=== PATIENT | male | born 1940 | race Caucasian/White ===

== ENCOUNTER 2024-07-01 12:51 | Emergency (ER) | payer MEDICARE, SELFPAY ==
[2024-07-01 13:15] VITALS: BP 150/72; PULSE 85; RESP 20; TEMP 36.8; O2SAT 95; BMI 24.4
--- NOTE | 2024-07-01 13:27 | XR_ITS ---
Examination: Knee, left , 3 views Technique: Knee AP, lateral, oblique 3 views Date and time of exam: June 2024 1337 hours INDICATIONS: Patient fell today with injury to the knee, knee pain. FINDINGS: Severe osteopenia Advanced osteoarthritis medial patellofemoral joints Small knee effusion No acute fracture Orthopedic screw patella IMPRESSION: No acute fracture Given the severe osteopenia, suggest short-term follow-up knee films as clinically warranted
--- NOTE | 2024-07-01 13:28 | EDRME_ITS ---
Rapid Medical Screening Exam REPLACED BY [facility] Arrival date/time: 07/01/24 12:51 83-year-old male with no known medical history presents to the emergency room with a chief complaint of left-sided knee pain x 3 days. [place] at [place]. Sister states the brother is unable to take care of himself and is requesting a social service consult. I have greeted and performed a focused initial assessment of this patient. A comprehensive ED assessment and evaluation of the patient, analysis of all test results, and completion of the medical decision making process will be conducted by additional ED providers. Chief Complaint: Extremity Injury, Lower Vital signs: Vital Signs Temperature 98.3 F 07/01/24 13:15 Pulse Rate 85 07/01/24 13:15 Respiratory Rate 20 07/01/24 13:15 Blood Pressure 150/72 H 07/01/24 13:15 Pulse Oximetry (%) 95 07/01/24 13:15 Oxygen Delivery Method Room Air 07/01/24 13:15 Vital signs reviewed by provider: Yes
--- NOTE | 2024-07-01 13:51 | PC.CC ---
KATHERINE Jacob consulted with Katharine YANEZ for resources for patient as patient's sister is reporting patient could benefit from support at home. Katharine YANEZ made [id number] contact with patient. ASW introduced self, role, and reason for visit. Patient appeared alert and oriented to self, location, and situation. Patient sister would like someone to be of assistance for patient while at home does not want him placed at SNF. ASW provided community resource guide to patient's sister and referred her to [facility]. Patient's sister would like doctor to sign documents that state patient is incompetent. ASW referred patient's sister back to primary care provider and provided update to KATHERINE Jacob.
[2024-07-01] MEDS: KETOROLAC INJ 60 MG/2 ML VIAL 30 MG IM (14:24)
--- NOTE | 2024-07-09 04:26 | PD.EDLOWEX ---
Lower Extremity Injury RME/HPI General Chief Complaint: Extremity Injury, Lower Stated Complaint: LEFT LEG PAIN Time Seen by Provider: 07/01/24 13:45 Source: patient Arrival date/time: 07/01/24 12:51 83-year-old male with no known medical history presents to the emergency room with a chief complaint of left-sided knee pain x 3 days. [place] at bedside [place]. Sister states the brother is unable to take care of himself and is requesting a social service consult. Mode of arrival: ambulatory Limitations: no limitations RME / HPI RME / HPI Narrative: 07/01/24 12:51 83-year-old male with no known medical history presents to the emergency room with a chief complaint of left-sided knee pain x 3 days. Sister at bedside [place]. Sister states the brother is unable to take care of himself and is requesting a social service consult. I have greeted and performed a focused initial assessment of this patient. A comprehensive ED assessment and evaluation of the patient, analysis of all test results, and completion of the medical decision making process will be conducted by additional ED providers. Related Data Previous Rx's ?Medication ?Instructions ?Recorded ibuprofen 800 mg tablet 800 mg PO TID PRN pain #30 tabs 04/04/21 ibuprofen 600 mg tablet 600 mg PO Q8H PRN fever or pain 07/01/24 #20 tabs Allergies Allergy/AdvReac Type Severity Reaction Status Date / Time No Known Allergies Allergy Verified 04/04/21 15:45 Review of Systems Review of Systems Systems Reviewed: All systems reviewed, normal except as documented Constitutional Constitutional: Reports system reviewed and no additional complaints, except as documented, Denies fatigue, Denies fever(s), Denies headache(s) and Denies weakness Eyes Eyes: Reports system reviewed and no additional complaints, except as documented, Denies blurry vision and Denies change in vision ENT Ears, Nose, Mouth, and Throat: Reports system reviewed and no additional complaints, except as documented, Denies otalgia, Denies headache(s), Denies nasal congestion, Denies throat swelling and Denies vertigo Cardiovascular Cardiovascular: Reports system reviewed and no additional complaints, except as documented, Denies chest pain, Denies dyspnea and Denies dyspnea on exertion Respiratory Respiratory: Reports system reviewed and no additional complaints, except as documented, Denies chest congestion, Denies cough, Denies dyspnea, Denies dyspnea on exertion and Denies wheezing Gastrointestinal Gastrointestinal: Reports system reviewed and no additional complaints, except as documented, Denies abdominal pain, Denies cramping, Denies nausea and Denies vomiting Genitourinary Genitourinary: Reports system reviewed and no additional complaints, except as documented, Denies dysuria and Denies hematuria Musculoskeletal Musculoskeletal: Reports system reviewed and no additional complaints, except as documented, Reports abnormal gait, Reports arthralgias, Denies back pain, Reports joint swelling and Reports limited range of motion Integumentary/Breasts Skin/Breast: Reports system reviewed and no additional complaints, except as documented and Denies wounds Neurologic Neurologic: Reports system reviewed and no additional complaints, except as documented, Reports abnormal gait, Denies confusion, Denies headache(s), Denies lack of coordination, Denies vertigo and Denies weakness Psychiatric Psychiatric: Reports system reviewed and no additional complaints, except as documented, Denies anxiety, Denies confusion, Denies depression, Denies paranoia, Denies suicidal ideation and Denies tactile hallucinations Endocrine Endocrine: Reports system reviewed and no additional complaints, except as documented and Denies fatigue Hematologic/Lymphatic Hematologic/Lymphatic: Reports system reviewed and no additional complaints, except as documented and Denies lymphadenopathy Allergic/Immunologic Allergic/Immunologic: Reports system reviewed and no additional complaints, except as documented, Denies throat swelling, Denies urticaria and Denies wheezing Past Medical History Social History SMOKING STATUS: Never smoker ED Exam General Limitations: Present no limitations General appearance: Present alert and in no apparent distress Head Head exam: Present atraumatic Eye Eye exam: Present normal appearance, PERRL and EOMI ENT ENT exam: Present normal exam, normal oropharynx and mucous membranes moist Neck Neck exam: Present normal inspection, full ROM and trachea midline Chest Chest inspection: Present normal inspection and symmetric chest wall rise Respiratory Respiratory exam: Present normal lung sounds bilaterally Cardiovascular Cardiovascular exam: Present regular rate, normal rhythm and normal heart sounds Abdominal Exam Abdominal exam: Present soft and normal bowel sounds Extremities Exam Extremities exam: Present normal inspection and full ROM Back Exam Back exam: Present normal inspection and full ROM Neurological Exam Neurological exam: Present alert, oriented X3 and CN II-XII intact Psychiatric Psychiatric exam: Present normal affect and normal mood Skin Skin exam: Present warm, dry, intact and normal color Course Quality Measures none Orders Category Date Time Status gurmeet wrap [Splint / Immobilizer] STAT Care 07/01/24 14:48 Completed XR knee LT 3V Stat Exams 07/01/24 13:27 Completed Ketorolac Inj [Toradol Inj] Med 07/01/24 13:27 Discontinued 30 mg IM X1 ONE Vital Signs Vital signs: Vital Signs Temperature 98.3 F 07/01/24 13:15 Pulse Rate 85 07/01/24 13:15 Respiratory Rate 20 07/01/24 13:15 Blood Pressure 150/72 H 07/01/24 13:15 Pulse Oximetry (%) 95 07/01/24 13:15 Oxygen Delivery Method Room Air 07/01/24 13:15 O2 saturation 95% within normal limits Extremity Injury, Lower MDM Narrative MDM Narrative:: 83-year-old male with no known medical history presents to the emergency room with a chief complaint of left-sided knee pain x 3 days. Sister at bedside [place]. Sister states the brother is unable to take care of himself and is requesting a social service consult. Clinically the patient appears nontoxic and in no apparent distress. Physical examination shows pain and tenderness to the left knee that has been going on for the last 3 days. Patient is having difficulty ambulating but there is no swelling to the area. Sister is at bedside and she is stating that she is requesting a social service consult. X-ray of the left knee was completed and was negative for any acute fracture. Gurmeet wrap was given. well services operator Nataliya spoke to the patient's sister gave her resources. Patient was discharged and educated to follow-up with primary care provider return to the emergency room for any evidence of worsening signs or symptoms Patient data External records reviewed:: [facility] previous records Clinical information provided by:: patient Social determinants that could affect healthcare access:: none Patient has the following chronic illnesses:: No chronic illness How is presenting disease/condition affected by chronic disease/condition?: no chronic disease Evaluation data The following diagnostics were reviewed and interpreted by me:: lab results and radiology exam(s) Lab and/or radiology exams considered but not ordered:: Labs and radiology exams considered and ordered Interpretation Summary: Left knee x-ray-no acute fracture Medications / Prescriptions Medications or Prescriptions considered but not ordered:: Medication given Medication administrations:: Medication Administration History Discontinued Medications Ketorolac Tromethamine (Ketorolac Inj 60 Mg/2 Ml Vial) 30 mg IM X1 ONE Stop: 07/01/24 13:28 Last Admin: 07/01/24 14:24 Dose: 30 mg Documented By: Medication given Consultations Consultation(s) initiated? (list below): No Diagnosis Extremity Injury, Lower Differential Diagnosis: other (Left knee sprain/left knee fracture) Most likely diagnosis given after review of the tests above:: Knee sprain Admission Indicated Admission indicated?: not indicated Admission Request Was there a request for admission?: No Disposition Plan Disposition Plan: Discharge Discharge Attestation Discharge Attestation: The patient and all family members were given an opportunity to ask questions and understood the discharge instructions. Discharge instructions specifically effects, indications for sooner follow up or return to the emergency department, and the expected course of current diagnosis. Patient condition: Stable Discharge Plan Plan Patient Disposition: HOME (Self Care) Disposition Comment: Stable Prescriptions/Referrals Prescriptions/Med Rec: New ibuprofen 600 mg tablet 600 mg PO Q8H PRN (Reason: fever or pain) Qty: 20 0RF No Action ibuprofen 800 mg tablet 800 mg PO TID PRN (Reason: pain) Qty: 30 0RF Referrals: No Primary/Family,Physician [Primary Care Provider] - In 1 week Problem List Clinical Impression: Knee sprain Patient/Caregiver Discharge Instructions Education Materials: ED GURMEET Wrap, ED Knee Sprain Additional Instructions: Please follow-up with your primary care provider in the next 24 to 48 hours. X-rays of your knee were completed and were negative for any acute fracture. For any evidence of worsening signs or symptoms please return to the emergency room immediately Print Language: Korean Stand Alone Forms: Larissa Award Info., Patient Portal Info Letter PA/CONSTANTINE Supervising Physician PA/CONSTANTINE Supervising Physician: Dr. Rob
== END 2024-07-01 15:14 | disposition home or self-care (01) ==
PROVIDERS: Emergency Provider Emergency Medicine
DX: S83.92XA Sprain of unspecified site of left knee, initial encounter (principal); X58.XXXA Exposure to other specified factors, initial encounter
CPT/HCPCS: 73562; 96372; 99283; J1885